=== PATIENT | female | born 1945 | race Two or more races ===

== ENCOUNTER 2024-06-07 10:34 | Inpatient (IN) | payer OTHER ==
[2024-06-07 12:27] LABS: ABSOLUTE IMMATURE GRANULOCYTES 0.03 x10^3/uL (0.0-0.031); BASOPHILS # 0.02 x10^3/uL (0.01-0.08); EOSINOPHIL % 0.2 % (0.7-5.8); EOSINOPHILS # 0.02 x10^3/uL (0.04-0.36); HEMOGLOBIN 14.9 g/dL (11.2-15.7); MCHC 32.4 g/dl (32.2-35.5); MEAN PLT VOLUME 11.2 fl (9.4-12.3); MONOCYTE # 0.45 x10^3/uL (0.24-0.86); MONOCYTE % 4.8 % (4.7-12.5); PLATELET COUNT 257 x10^3/uL (182-369); RDW 12.9 % (12.4-16.6)
[2024-06-07] MEDS ORDERED: MAG HYDROX/AL HYDROX/SIMETH 30 ML UNIT-DOSE CUP ONE (12:34)
[2024-06-07] MEDS ORDERED: KETOROLAC TROMETHAMINE 30 MG/1 ML VIAL ONE ×2 (12:34→17:52)
[2024-06-07] MEDS ORDERED: ONDANSETRON 4 MG/2 ML VIAL ONE (12:35)
[2024-06-07] MEDS ORDERED: FAMOTIDINE 20 MG/50 ML IVPB 20 MG/50 ML MG IVPB ONE (12:35)
[2024-06-07 12:51] LABS: CHLORIDE 104 mmol/L (98-107); SODIUM 136 mmol/L (136-145)
[2024-06-07 12:54] LABS: BLOOD UREA NITROGEN 19.2 mg/dL (7-18); CALCIUM 9.2 mg/dL (8.5-10.1); CO2 27 mmol/L (21-32); MAGNESIUM 2.1 mg/dL (1.8-2.4)
[2024-06-07 12:55] LABS: ALBUMIN 3.6 g/dl (3.4-5.0); ANION GAP 5 mmol/L (4-13); GLUCOSE,RANDOM 91 mg/dL (74-106); POTASSIUM 7.7 mmol/L (3.5-5.1)
[2024-06-07 12:58] LABS: CREATININE 1.1 mg/dL (0.55-1.3); PHOSPHOROUS 3.9 mg/dL (2.5-4.9); SGOT/AST 114 U/L (15-37); SGPT/ALT 28 U/L (13-61)
[2024-06-07 12:59] LABS: BILIRUBIN,TOTAL 0.6 mg/dL (0.2-1); TOT PROT 7.8 g/dl (6.4-8.2)
[2024-06-07 13:00] LABS: ALK PHOS 105 U/L (45-117)
[2024-06-07] MEDS: MAG HYDROX/AL HYDROX/SIMETH -MYLANTA- ORAL SUSPENSION PO ONE (13:00)
[2024-06-07] MEDS: KETOROLAC TROMETHAMINE 30 MG/1 ML VIAL IVPUSH ONE ×2 (13:02→17:54)
[2024-06-07] MEDS: FAMOTIDINE 20 MG/50 ML IVPB 20 MG in PREMIX 50 IVPB ONE (13:02)
[2024-06-07] MEDS: ONDANSETRON 4 MG/2 ML VIAL IVPB ONE (13:02)
[2024-06-07 13:09] LABS: EPI CELLS 17 /uL (0-25.1); HYALINE CASTS 0 /uL (0-3.1); PH,URINE 7.5 (5.0-8.0); URINE APPEARANCE CLEAR; URINE BACTERIA 4869 /uL (0-1359); URINE BILIRUBIN NEGATIVE (NEGATIVE); URINE COLOR YELLOW; URINE GLUCOSE (UA) NEGATIVE (NEGATIVE); URINE KETONE NEGATIVE (NEGATIVE); URINE LEUK ESTERASE NEGATIVE (NEGATIVE); URINE NITRITE NEGATIVE (NEGATIVE); URINE PROTEIN NEGATIVE (NEGATIVE); URINE RBC 264 /uL (0-23.9); URINE UROBILINOGEN 0.2 mg/dL (0.2-1.0); URINE WBC 12 /uL (0-25.8)
[2024-06-07 13:44] LABS: INR 1.05 (0.83-1.09); PROTHROMBIN TIME (PATIENT) 11.5 SEC (9.7-13.0)
[2024-06-07 13:47] LABS: ACTIVATED PTT 26.9 SECONDS (25.2-36.5)
[2024-06-07 13:57] LABS: POTASSIUM 4.5 mmol/L (3.5-5.1)
[2024-06-07 13:59] LABS: BLOOD UREA NITROGEN 18.7 mg/dL (7-18); CALCIUM 9.3 mg/dL (8.5-10.1)
[2024-06-07] MEDS ORDERED: CEFTRIAXONE 1 G/50 ML PREMIX 50 ML IVPB ONE (14:21)
[2024-06-07] MEDS: CEFTRIAXONE 1 GM in DEXTROSE 5%-WATER - 50 ML IVPB ONE (14:27)
[2024-06-07] MEDS: SODIUM CHLORIDE 0.9% 500 ML INFUS.BAG IV ONE (15:46)
[2024-06-07 18:47] VITALS: BMI 28.4
[2024-06-07] MEDS ORDERED: ACETAMINOPHEN 325 MG TABLET (FP) PO PRN (20:08)
[2024-06-07] MEDS: SODIUM CHLORIDE 1,000 ML IV SCH (20:47)
[2024-06-07] MEDS: ATORVASTATIN CA 20 MG TABLET (FP) PO SCH (21:19)
[2024-06-07] MEDS: CARVEDILOL 12.5 MG TABLET (FP) PO SCH (21:19)
[2024-06-08] MEDS ORDERED: KETOROLAC TROMETHAMINE 15 MG/ML VIAL IVPUSH PRN
[2024-06-08] MEDS: LEVOTHYROXINE NA 50 MCG TABLET (FP) PO SCH (06:27)
[2024-06-08 08:12] LABS: ABSOLUTE IMMATURE GRANULOCYTES 0.01 x10^3/uL (0.0-0.031); BASOPHILS # 0.03 x10^3/uL (0.01-0.08); EOSINOPHIL % 2.6 % (0.7-5.8); EOSINOPHILS # 0.14 x10^3/uL (0.04-0.36); HEMATOCRIT 37.2 % (34.1-44.9); HEMOGLOBIN 11.6 g/dL (11.2-15.7); MCHC 31.2 g/dl (32.2-35.5); MEAN CELL VOLUME 92.8 fl (79.4-94.8); MEAN PLT VOLUME 10.9 fl (9.4-12.3); MONOCYTE # 0.45 x10^3/uL (0.24-0.86); MONOCYTE % 8.3 % (4.7-12.5); PLATELET COUNT 216 x10^3/uL (182-369)
[2024-06-08 08:31] LABS: POTASSIUM 3.9 mmol/L (3.5-5.1)
[2024-06-08 08:37] LABS: BLOOD UREA NITROGEN 21.8 mg/dL (7-18); CALCIUM 8.2 mg/dL (8.5-10.1)
[2024-06-08 08:39] LABS: CREATININE 0.8 mg/dL (0.55-1.3)
[2024-06-08 08:40] LABS: PHOSPHOROUS 3.5 mg/dL (2.5-4.9)
[2024-06-08 08:41] LABS: BILIRUBIN,TOTAL 0.9 mg/dL (0.2-1)
[2024-06-08 08:43] LABS: TOT PROT 5.5 g/dl (6.4-8.2)
[2024-06-08] MEDS: CEFTRIAXONE 1 G/50 ML PREMIX 50 ML IVPB SCH (09:27)
[2024-06-08] MEDS: LISINOPRIL 20 MG TABLET PO SCH (09:27)
[2024-06-08] MEDS: ENOXAPARIN NA (PORCINE) 40 MG/0.4 ML DISP.SYRIN SQ SCH (09:27)
[2024-06-08] MEDS: TAMSULOSIN HCL 0.4 MG CAP PO ONE (13:35)
[2024-06-09 07:44] VITALS: PULSE 59; RESP 16
[2024-06-09] MEDS: TAMSULOSIN HCL 0.4 MG CAP PO SCH (09:22)
[2024-06-09 12:45] VITALS: BP 139/70; TEMP 97.9
== END 2024-06-09 11:06 | disposition home or self-care (01) | DRG 465 ==
LOC: JER 10:34 → JERBED 15:50 → J7W 18:07
PROVIDERS: ADMIT Student in an Organized Health Care Education/Training Program
DX: N13.2 Hydronephrosis with renal and ureteral calculous obstruction (principal); I10 Essential (primary) hypertension; E78.5 Hyperlipidemia, unspecified; E87.5 Hyperkalemia; R31.9 Hematuria, unspecified
CPT/HCPCS: 0241U-QW; 36415; 74176-TC; 76705-TC; 80048; 80053; 81003; 83690; 83735; 84100; 84484; 85025; 85610; 85730; 87086; 93005; 93010; 99285-25